=== PATIENT | male | born 1950 | race Caucasian/White ===

== ENCOUNTER 2019-01-24 19:07 | Emergency (ER) | payer BC ==
[2019-01-24] MEDS ORDERED: Aspirin Chewable 81 MG TAB ONE (19:45)
[2019-01-24 20:23] LABS: %Neutrophils 60.4 % (42.0-75.0); Hemoglobin 9.6 g/dL (14.0-18.0); Mean Corpuscular HGB CONC 32.9 g/dL (32.0-36.0); Mean Corpuscular Hemoglobin 27.6 pg (27.0-31.0); Mean Corpuscular Volume 83.9 fL (78.0-98.0); Mean Platelet Volume 7.8 fL (7.4-10.4); Platelet Count 217 thou/uL (130-400); RBC Distribution Width 13.9 % (11.5-14.5)
[2019-01-24 20:24] LABS: #Basophils 0.1 thou/uL (0.0-0.2); #Eosinphils 0.3 thou/uL (0.0-0.7); #Monocytes 0.9 thou/uL (0.11-0.59); #Neutrophils 3.6 thou/uL (1.40-6.50); %Basophils 2.1 % (0.0-1.0); %Eosinophils 5.7 % (0.0-10.0); %Lymphocytes 16.2 % (21.0-51.0); %Monocytes 15.7 % (0.0-10.0); MDiff Complete? YES
[2019-01-24 20:25] LABS: Albumin 4.4 g/dL (3.4-4.8); Alkaline Phosphatase 41 U/L (40-110); Anion Gap 14 mmol/L (10-20); BUN (Urea Nitrogen) 12 mg/dL (8.4-25.7); Bilirubin, Total 0.6 mg/dL (0.2-1.2); Calc. Creatinine Clearance 0 mL/min (70-130); Calcium 9.1 mg/dL (7.8-10.44); Carbon Dioxide 23 mmol/L (23-31); Chloride 105 mmol/L (98-107); Estimated GFR-MDRD 75; Globulin 2.6 g/dL (2.4-3.5); Glucose 97 mg/dL (80-115); Potassium 3.9 mmol/L (3.5-5.1); Sodium 138 mmol/L (136-145)
[2019-01-24 20:26] LABS: ALT (SGPT) 20 U/L (8-55); AST (SGOT) 18 U/L (5-34); Lipase 50 U/L (8-78)
[2019-01-24] MEDS ORDERED: Enoxaparin Sodium 100 MG/ML SYRINGE ONE (20:28)
--- NOTE | 2019-01-24 22:41 | RAD ---
PORTABLE CHEST: 01/24/19 An AP portable film at 1942 shows a normal sized heart and clear lungs. No acute infiltrate or effusi on was seen. No pulmonary masses are apparent. The trachea is midline. There might be a small strip o f atelectasis or scarring in the right base medially. IMPRESSION: No significant finding. POS: HOME
== END 2019-01-24 21:30 | disposition short-term general hospital (02) ==
LOC: BURERS 19:07
DX: I10 Essential (primary) hypertension (principal); I25.110 Atherosclerotic heart disease of native coronary artery with unstable angina pectoris; D64.9 Anemia, unspecified; Z79.82 Long term (current) use of aspirin; Z79.899 Other long term (current) drug therapy
CPT/HCPCS: 71045; 80053; 83690; 84484; 85025; 93005; 96372; J1650